=== PATIENT | female | born 1955 | race Caucasian/White ===

== ENCOUNTER 2018-01-24 13:11 | Emergency (ER) | payer OTHER ==
[~2018-01-24] VITALS: Ht 160 cm; Wt 72.6 kg
[~2018-01-24 13:11] MED LIST: METFORMIN HCL500 MG; SIMVASTATIN20 MG; TRIGLIDE160 MG
== END 2018-01-24 18:07 | disposition home or self-care (01) ==
LOC: ER 13:11
DX: K29.70 Gastritis, unspecified, without bleeding (principal)

== ENCOUNTER 2018-01-25 05:22 | Inpatient (IN) | payer OTHER ==
[~2018-01-25] VITALS: Ht 160 cm; Wt 69.4 kg
== END 2018-02-10 19:22 | disposition home or self-care (01) | DRG 417 ==
LOC: ER 05:22 → MEDJ 17:36 → ICU-2 17:36 → ICU 01-28 01:39 → MEDJ 01-29 10:38
PROVIDERS: Surgery
PROC: BW40ZZZ Ultrasonography of Abdomen (ICD-10-PCS; 2018-01-25)
PROC: BF37ZZZ Magnetic Resonance Imaging (MRI) of Pancreas (ICD-10-PCS; 2018-01-25)
PROC: 3E0F7GC Introduction of Other Therapeutic Substance into Respiratory Tract, Via Natural or Artificial Opening (ICD-10-PCS; 2018-01-27)
PROC: 4A033R1 Measurement of Arterial Saturation, Peripheral, Percutaneous Approach (ICD-10-PCS; 2018-01-27)
PROC: 3E0336Z Introduction of Nutritional Substance into Peripheral Vein, Percutaneous Approach (ICD-10-PCS; 2018-01-27)
PROC: B246ZZZ Ultrasonography of Right and Left Heart (ICD-10-PCS; 2018-01-28)
PROC: BW24ZZZ Computerized Tomography (CT Scan) of Chest and Abdomen (ICD-10-PCS; 2018-01-30)
PROC: BW25Y0Z Computerized Tomography (CT Scan) of Chest, Abdomen and Pelvis using Other Contrast, Unenhanced and Enhanced (ICD-10-PCS; 2018-02-01)
PROC: 0DBU4ZZ Excision of Omentum, Percutaneous Endoscopic Approach (ICD-10-PCS; 2018-02-07)
PROC: 0FT44ZZ Resection of Gallbladder, Percutaneous Endoscopic Approach (ICD-10-PCS; principal; 2018-02-07 09:15)
PROC: BU4CZZZ Ultrasonography of Uterus and Ovaries (ICD-10-PCS; 2018-02-08)
DX: K80.10 Calculus of gallbladder with chronic cholecystitis without obstruction (principal); K85.10 Biliary acute pancreatitis without necrosis or infection; A41.9 Sepsis, unspecified organism; J90 Pleural effusion, not elsewhere classified; J98.11 Atelectasis; K65.4 Sclerosing mesenteritis; E11.9 Type 2 diabetes mellitus without complications; I10 Essential (primary) hypertension; E78.4 Other hyperlipidemia; E07.81 Sick-euthyroid syndrome; K29.00 Acute gastritis without bleeding; R09.02 Hypoxemia